=== PATIENT | male | born 1990 | race Caucasian/White ===

== ENCOUNTER → 2017-09-27 14:45 | Outpatient (CLI) | payer MEDICAID, SELFPAY ==
--- NOTE | 2017-09-27 14:49 | RAD_ITS ---
STUDY: X-RAY - ABDOMEN/PELVIS REASON FOR EXAM: Male, 27 years old. Nausea, vomiting and diarrhea. TECHNIQUE: AP supine and upright views of the abdomen and pelvis. COMPARISON: None. FINDINGS: Normal visualized lung bases. There is an abundance of fecal material throughout the colon. There is no demonstrated free abdominal air. The visualized liver, spleen and kidneys are grossly normal in size and morphology. Normal soft tissue structures. Normal visualized osseous structures. RAD/Abd Inc Decub and/or Erect IMPRESSION: Large amount of fecal material is seen in the colon. Electronically Signed: Ag Wen MD at 15:28 EST Tel [phone], Service support ,
== END ==
PROVIDERS: Family Provider Family Medicine; PCP Family Medicine; Visit Provider Family Medicine Geriatric Medicine
DX: R11.2 Nausea with vomiting, unspecified (principal)
CPT/HCPCS: 36415; 74019; 80048; 85025; 87633

== ENCOUNTER → 2017-09-27 15:23 | Outpatient (CLI) | payer MEDICAID, SELFPAY ==
[2017-09-27 17:04] LABS: Anion Gap 5 (5-15); BUN 10 mg/dL (7-18); BUN/Creat Ratio 13.6 RATIO (10-20); Calcium,Total 9.1 mg/dL (8.5-10.1); Chloride 102 mmol/L (98-107); Creatinine, Serum 0.74 mg/dL (0.70-1.30); EST Glomerular Filtration Rate 138 mL/min (>60); Est Glom Filt Rate - Afr Amer 167 mL/min (>60); Glucose 77 mg/dL (74-106); Potassium 4.2 mmol/L (3.5-5.1); Sodium Level 138 mmol/L (136-145)
[2017-09-27 17:07] LABS: Absolute Lymphocyte Count 2.44 X10^3/ul (0.83-4.51); Absolute Neutrophil Count 3.4 X10^3/uL (2.0-7.7); Basophil# 0.02 X10^3/uL; Basophil% 0.3 % (0-1); Eosinophil# 0.43 X10^3/uL; Eosinophils% 6.3 % (0-5); Hematocrit 44.6 % (40-54); Hemoglobin 15.4 g/dl (13.0-16.5); Lymphocyte # 2.44 X10^3/ul (4.0); Lymphocyte % 35.9 % (19-41); Mean Corp Hgb Conc 34.5 g/gl (32-36); Mean Corpuscular Hgb 30.3 pg (27.0-32.0); Mean Corpuscular Volume 87.6 fL (80-94); Mean Platelet Vol. 10.7 fl (6.2-12.0); Monocyte# 0.49 X10^3/uL; Monocyte% 7.2 % (0-10); Neutrophil # 3.41 X10^3/uL (2.7-7.7); Neutrophil % 50.2 % (47-70); Platelet Count 275 K/mm3 (150-450); RBC Distribution Width CV 12.1 % (11.6-14.6); RBC Distribution Width SD 38.1 fl (35.1-43.9); Red Blood Count 5.09 M/mm3 (4.6-6.2); White Blood Count 6.8 K/mm3 (4.4-11.0)
[2017-09-27 17:11] LABS: POSITIVE COUNT NO; POSITIVE DIFFERENTIAL NO; POSITIVE MORPHOLOGY NO
== END ==
PROVIDERS: Visit Provider Family Medicine Geriatric Medicine
DX: R11.2 Nausea with vomiting, unspecified (principal)
CPT/HCPCS: 36415; 80048; 85025

== ENCOUNTER → 2018-05-09 09:16 | Outpatient (CLI) | payer MEDICAID, SELFPAY ==
[2018-05-09 12:25] LABS: Absolute Lymphocyte Count 2.07 X10^3/ul (0.83-4.51); Absolute Neutrophil Count 3.8 X10^3/uL (2.0-7.7); Basophil# 0.01 X10^3/uL; Basophil% 0.2 % (0-1); Eosinophils% 3.1 % (0-5); Hemoglobin 15.4 g/dl (13.0-16.5); Lymphocyte # 2.07 X10^3/ul (4.0); Mean Corp Hgb Conc 34.2 g/gl (32-36); Mean Corpuscular Volume 87.5 fL (80-94); Mean Platelet Vol. 10.9 fl (6.2-12.0); Monocyte% 6.2 % (0-10); Neutrophil # 3.78 X10^3/uL (2.7-7.7); Neutrophil % 58.3 % (47-70); Platelet Count 240 K/mm3 (150-450); RBC Distribution Width CV 11.9 % (11.6-14.6); Red Blood Count 5.14 M/mm3 (4.6-6.2); White Blood Count 6.5 K/mm3 (4.4-11.0)
[2018-05-09 12:28] LABS: POSITIVE COUNT NO; POSITIVE DIFFERENTIAL NO; POSITIVE MORPHOLOGY NO
[2018-05-09 12:40] LABS: AST(SGOT) 24 U/L (15-37); Alanine Aminotransfer ALT/SGPT 29 U/L (16-61); Albumin, Serum 4.1 g/dL (3.2-5.0); Alkaline Phosphatase 93 U/L (45-117); Anion Gap 5 (5-15); BUN 14 mg/dL (7-18); Chloride 106 mmol/L (98-107); Creatinine, Serum 0.87 mg/dL (0.70-1.30); EST Glomerular Filtration Rate 112 mL/min (>60); Est Glom Filt Rate - Afr Amer 136 mL/min (>60); Glucose 88 mg/dL (74-106); Potassium 4.2 mmol/L (3.5-5.1); Protein, Total 8.1 g/dL (6.4-8.2); Sodium Level 140 mmol/L (136-145); Thyroid Stim Hormone (TSH) 0.68 uIU/mL (0.358-3.74)
== END ==
PROVIDERS: Family Provider Family Medicine; PCP Family Medicine; Visit Provider Family Medicine Geriatric Medicine
DX: R53.83 Other fatigue (principal)
CPT/HCPCS: 36415; 80053; 84443; 85025

== ENCOUNTER → 2018-08-16 08:28 | Outpatient (CLI) | payer MEDICAID, SELFPAY ==
[2018-08-16 09:54] LABS: Absolute Lymphocyte Count 2.06 X10^3/ul (0.83-4.51); Absolute Neutrophil Count 4.7 X10^3/uL (2.0-7.7); Basophil# 0.02 X10^3/uL; Basophil% 0.3 % (0-1); Eosinophil# 0.21 X10^3/uL; Eosinophils% 2.8 % (0-5); Hematocrit 46.9 % (40-54); Hemoglobin 15.5 g/dl (13.0-16.5); Lymphocyte # 2.06 X10^3/ul (4.0); Lymphocyte % 27.7 % (19-41); Mean Corpuscular Hgb 29.6 pg (27.0-32.0); Mean Corpuscular Volume 89.5 fL (80-94); Mean Platelet Vol. 10.5 fl (6.2-12.0); Monocyte# 0.44 X10^3/uL; Monocyte% 5.9 % (0-10); Neutrophil % 63.2 % (47-70); Platelet Count 240 K/mm3 (150-450); RBC Distribution Width CV 12.4 % (11.6-14.6); RBC Distribution Width SD 40.1 fl (35.1-43.9); Red Blood Count 5.24 M/mm3 (4.6-6.2); White Blood Count 7.4 K/mm3 (4.4-11.0)
[2018-08-16 09:56] LABS: POSITIVE COUNT NO; POSITIVE DIFFERENTIAL NO; POSITIVE MORPHOLOGY NO
[2018-08-16 10:20] LABS: ALB/GLOB Ratio 1.2 RATIO (0.9-2.4); AST(SGOT) 22 U/L (15-37); Alanine Aminotransfer ALT/SGPT 27 U/L (16-61); Albumin, Serum 4.3 g/dL (3.2-5.0); Alkaline Phosphatase 92 U/L (45-117); Anion Gap 8 (5-15); BUN 15 mg/dL (7-18); BUN/Creat Ratio 18.1 RATIO (10-20); Calcium,Total 8.7 mg/dL (8.5-10.1); Chloride 105 mmol/L (98-107); Creatinine, Serum 0.83 mg/dL (0.70-1.30); EST Glomerular Filtration Rate 119 mL/min (>60); Est Glom Filt Rate - Afr Amer 144 mL/min (>60); Globulin 3.7 g/dL (2.2-4.2); Glucose 107 mg/dL (74-106); Potassium 3.7 mmol/L (3.5-5.1); Sodium Level 140 mmol/L (136-145)
[2018-08-16 11:02] LABS: Carbamazepine (Tegretol) 9.8 ug/mL (4.0-12.0)
== END ==
PROVIDERS: Family Provider Family Medicine Geriatric Medicine; PCP Family Medicine Geriatric Medicine
DX: G40.919 Epilepsy, unspecified, intractable, without status epilepticus (principal)
CPT/HCPCS: 36415; 80053; 80156; 80177; 85025

== ENCOUNTER 2018-10-18 09:12 | Emergency (ER) | payer MEDICAID, SELFPAY ==
[2018-10-18 09:14] VITALS: BP 120/69; PULSE 87; RESP 18; TEMP 36.2; O2SAT 97; BMI 28.8
--- NOTE | 2018-10-18 09:31 | CT_ITS ---
STUDY: CT BRAIN WITHOUT CONTRAST REASON FOR EXAM: Male, 28 years old. History of seizures. RADIATION DOSAGE (If Supplied By Facility): CTDIvol = ( 44.99 ) mGy, DLP = ( 796.11 ) mGycm TECHNIQUE: Transaxial CT imaging of the brain was performed without administration of intravenous contrast material. Individualized dose optimization techniques were used for this CT. COMPARISON: Comparison is made with prior study dated February 22, 2016. FINDINGS: Normal soft tissue structures. Normal calvarium. Normal size ventricles and extra-axial spaces for the patient's age. Normal white matter tracts of the cerebral hemispheres. Normal basal ganglia and thalami. Normal brainstem. Normal cerebellum. There is no intracranial hemorrhage. There are no findings of an acute ischemic infarction. Normal visualized paranasal sinuses. CT/Brain/Head without Contrast IMPRESSION: Normal unenhanced CT scan of the brain. Electronically Signed: Ag Wen, at 9:59 EDT , Service support ,
--- NOTE | 2018-10-18 09:31 | ED.VISSUMM ---
- ER Visit Summary Date of Service: 10/18/18 Chief Complaint: Head trauma History of Present Illness: The patient is a 28 M with history of epilepsy and MRDD who presents for evaluation of head trauma after a breakthrough seizure. Patient has been having an increased number of breakthrough seizures in the last day, with 3 generalized seizures this morning. During the last seizure, he fell in the bathroom and hit his head. Patient had a brief postictal period and per the caregiver is now at his baseline. He does have trauma to the right side of the head which she requested evaluating. She also states when he has increased breakthrough seizures, he commonly has an ear infection, and she is requesting evaluation for this. Patient has not had any recent cough, vomiting, diarrhea, shortness of breath, or any other noted symptoms concerning for illness. Patient has been taking all his medications as prescribed. Physical Examination: Vital signs: afebrile, hemodynamically stable, no hypoxia on room air General: well nourished, well developed, in no distress, sitting in bed Skin: warm, dry, no rash, no pallor HEENT: normocephalic, abrasions to the right forehead and the right temporal scalp with small amount of hemorrhage but no laceration; PERRL, EOMI, moist mucous membranes no maxillofacial trauma noted, no posterior oropharyngeal swelling erythema or exudate neck is supple, no lymphadenopathy, TMs are clear and pearly bilaterally with no bulging, dullness, erythema or loss of landmarks Cardiovascular: regular rate and rhythm without murmurs, no peripheral edema, 2+ pulses all distal extremities Respiratory: No increased work of breathing, lungs are clear to auscultation bilaterally, no rales, rhonchi or wheezing Abdominal: Abdomen is soft, nontender with normoactive bowel sounds, no guarding or rebound, no masses MSK: Moves all extremities, no deformities, normal strength Neuro: Awake and at his baseline per caregiver. Patient will groan and moan but is nonverbal otherwise. Test Results: [ Abnormal Lab Results 10/18/18 09:55 POC Glucose 74 Clinical Impression(s) from Imaging Studies Brain CT 10/18/18 09:31 IMPRESSION: Normal unenhanced CT scan of the brain. Electronically Signed: Ag Wen, at 9:59 EDT , Service support , Emergency Department Course and Treatment: Per the caregiver, patient's tetanus is up-to-date. Patient has been having increased breakthrough seizures, with 3 this morning without any noted sign of infection on physical exam. Patient's abrasions to the scalp do not require any suturing. However given the location of the injury and patient's inability to answer any questions for evaluation of mental status, head CT performed. Head CT showed no intracranial hemorrhage. Blood sugar was checked and was within normal range. Patient remained at his baseline mental status per the caregiver and had no further seizure activity in the emergency department. I did offer to perform lab work to look for any underlying electrolyte abnormalities or other derangements that might be making patient more predisposed to breakthrough seizures. The caregiver declined. Patient was discharged back with wound care instructions to his halfway. Treatment Plan: [] Disposition: [] Impression: Scalp abrasions, breakthrough seizures, history of epilepsy This note was generated with [employer] dictation software. It may contain incorrect words, spelling, and punctuation that were not noted in review of the chart prior to signing ED Disposition - Plan for ED Patient: Disposition: Home or Assisted Living Instructions: ED Seizure Recurrent, ED Prevention Fall Referrals: Hermes Isaac Chi, MD [Primary Care Provider] - 1-2 Days if not improving Additional Instructions: Please continue to take all of your seizure medications as prescribed. Apply antibacterial ointment to the abrasions on your scalp twice daily until healed. If you have any worsening of your condition or any new concerning symptoms, please return immediately to the emergency department for another evaluation.
--- NOTE | 2018-10-18 09:35 | ED.DCSUM_ITS ---
- ER Visit Summary Date of Service: 10/18/18 Chief Complaint: Head trauma History of Present Illness: The patient is a 28 M with history of epilepsy and MRDD who presents for evaluation of head trauma after a breakthrough seizure. Patient has been having an increased number of breakthrough seizures in the last day, with 3 generalized seizures this morning. During the last seizure, he fell in the bathroom and hit his head. Patient had a brief postictal period and per the caregiver is now at his baseline. He does have trauma to the right side of the head which she requested evaluating. She also states when he has increased breakthrough seizures, he commonly has an ear infection, and she is requesting evaluation for this. Patient has not had any recent cough, vomiting, diarrhea, shortness of breath, or any other noted symptoms concerning for illness. Patient has been taking all his medications as prescribed. Physical Examination: Vital signs: afebrile, hemodynamically stable, no hypoxia on room air General: well nourished, well developed, in no distress, sitting in bed Skin: warm, dry, no rash, no pallor HEENT: normocephalic, abrasions to the right forehead and the right temporal scalp with small amount of hemorrhage but no laceration; PERRL, EOMI, moist mucous membranes no maxillofacial trauma noted, no posterior oropharyngeal swelling erythema or exudate neck is supple, no lymphadenopathy, TMs are clear and pearly bilaterally with no bulging, dullness, erythema or loss of landmarks Cardiovascular: regular rate and rhythm without murmurs, no peripheral edema, 2+ pulses all distal extremities Respiratory: No increased work of breathing, lungs are clear to auscultation bilaterally, no rales, rhonchi or wheezing Abdominal: Abdomen is soft, nontender with normoactive bowel sounds, no guarding or rebound, no masses MSK: Moves all extremities, no deformities, normal strength Neuro: Awake and at his baseline per caregiver. Patient will groan and moan but is nonverbal otherwise. Test Results: [ Abnormal Lab Results 10/18/18 09:55 POC Glucose 74 Clinical Impression(s) from Imaging Studies Brain CT 10/18/18 09:31 IMPRESSION: Normal unenhanced CT scan of the brain. Electronically Signed: Ag Wen, at 9:59 EDT , Service support , Emergency Department Course and Treatment: Per the caregiver, patient's tetanus is up-to-date. Patient has been having increased breakthrough seizures, with 3 this morning without any noted sign of infection on physical exam. Patient's abrasions to the scalp do not require any suturing. However given the location of the injury and patient's inability to answer any questions for evaluation of mental status, head CT performed. Head CT showed no intracranial hemorrhage. Blood sugar was checked and was within normal range. Patient remained at his baseline mental status per the caregiver and had no further seizure activity in the emergency department. I did offer to perform lab work to look for any underlying electrolyte abnormalities or other derangements that might be making patient more predisposed to breakthrough seizures. The caregiver declined. Patient was discharged back with wound care instructions to his snf. Treatment Plan: [] Disposition: [] Impression: Scalp abrasions, breakthrough seizures, history of epilepsy This note was generated with [employer] dictation software. It may contain incorrect words, spelling, and punctuation that were not noted in review of the chart prior to signing ED Disposition - Plan for ED Patient: Disposition: Home or Assisted Living Instructions: ED Seizure Recurrent, ED Prevention Fall Referrals: Hermes Isaac Chi, MD [Primary Care Provider] - 1-2 Days if not improving Additional Instructions: Please continue to take all of your seizure medications as prescribed. Apply antibacterial ointment to the abrasions on your scalp twice daily until healed. If you have any worsening of your condition or any new concerning symptoms, please return immediately to the emergency department for another evaluation.
[2018-10-18 10:01] LABS: Bedside Glucose 74 mg/dL (70-110)
[2018-10-18 10:29] VITALS: PULSE 83; RESP 14
== END 2018-10-18 10:30 | disposition home or self-care (01) ==
PROVIDERS: Emergency Provider Emergency Medicine; Family Provider Family Medicine Geriatric Medicine; PCP Family Medicine Geriatric Medicine
DX: S00.01XA Abrasion of scalp, initial encounter (principal); G40.909 Epilepsy, unspecified, not intractable, without status epilepticus; W18.30XA Fall on same level, unspecified, initial encounter; Y93.89 Activity, other specified; Y92.002 Bathroom of unspecified non-institutional (private) residence as the place of occurrence of the external cause; Y99.8 Other external cause status
CPT/HCPCS: 70450; 82962; 99282

== ENCOUNTER 2019-04-13 11:18 | Emergency (ER) | payer MEDICAID, SELFPAY ==
[2019-04-13 11:19] VITALS: BP 128/72; PULSE 86; RESP 17; TEMP 36.8; O2SAT 98; BMI 27.6
[2019-04-13] MEDS: Diphth,Pertuss(Acell),Tet Vac 0.5 ML Vial IM (13:40)
--- NOTE | 2019-04-13 13:48 | ED.DCSUM_ITS ---
History of Present Illness Chief Complaint: Laceration Informant: - Onset: Today Context: Sudden Onset Narrative: She is a 28-year-old male with history of poorly controlled seizure disorder with weekly seizures presenting for laceration to his chin. Patient's caregiver states that he had a seizure in the bathroom today fell and hit his chin. The seizure was typical of his seizures. Patient is on multiple seizure medications been compliant with all of the per the caregiver. She is unsure when his last tetanus was. They came in for evaluation of his laceration. Patient currently has no complaints. Past Medical History - Allergies and Home Meds Allergies/Adverse Reactions: Allergies amphetamine aspartate [From Adderall] Allergy (Verified 04/13/19 11:19) Unknown amphetamine sulfate [From Adderall] Allergy (Verified 04/13/19 11:19) Unknown buspirone HCl [From BuSpar] Allergy (Verified 04/13/19 11:19) Unknown dextroamphetamine saccharate [From Adderall] Allergy (Verified 04/13/19 11:19) Unknown dextroamphetamine sulfate [From Adderall] Allergy (Verified 04/13/19 11:19) Unknown divalproex sodium [From Depakote] Adverse Reaction (Verified 04/13/19 11:19) Other Primary Care Physician: Hermes Isaac Chi, MD [Primary Care Provider] - Past Medical History: - - MRDD, epilepsy Smoking Status: Never smoker Review of Systems All systems negative except as indicated Skin: Reports: Wounds - Chin Neurological: Reports: - - Seizure activity Physical Exam Vital Signs/Narrative: Vital Signs Temp Pulse Resp BP Pulse Ox 04/13/19 11:19 98.3 F 86 17 128/72 H 98 Inital Vital Signs reviewed: Yes General: Well nourished, Well developed, No Acute Distress Head: Normocephalic, Atraumatic Eyes: Perrl, EOMI ENT: Moist mucous membranes, No rhinorrhea, - - No signs of basilar skull fracture, no malocclusion, no septal hematoma Neck: Supple, Nontender, - - Full Range of motion Cardiovascular: Regular rate, Regular rhythm, No murmurs Respiratory: No distress, CTA bilaterally, Chest nontender Abdomen: Soft, Nontender, Nondistended, Normal bowel sounds Back: Nontender, Normal Inspection Extremities: Nontender, No edema Skin: Normal color, No rash, - - 2 Centimeter full-thickness linear laceration underneath the chin, slightly gaping, no active bleeding Neurological: Alert, Cranial nerves II-XII grossly intact, Normal Strength, Normal Sensation Psychological: Normal affect, Normal Mood Diagnostic/Tx/Re-eval - Medical Decision Making Evaluated for laceration to his chin after a breakthrough seizure. Patient has approximate 1 seizure week and this is his baseline. He is returned to his baseline. He does not require further seizure evaluation at this time. Laceration was repaired to his chin. See procedure note. Tetanus is updated. Patient's caregivers counseled on signs and symptoms requiring return to the emergency room. They verbalized agreement and understand this plan. He will need to return in 5 to 7 days for wound reevaluation and suture removal. Procedures - Lacerations No standard instances Length: 0.79 in Depth: Skin Shape: Linear Prep: Sterile Conditions Laceration repair: Skin sutures - Patient tolerated procedure well, no immediate complications. Irrigated (ml): 100 Number of Sutures/[place]: 4 Suture Information: Ethilon, 5-0 ED Disposition - Plan for ED Patient: Disposition: Home or Assisted Living Diagnosis: Laceration, Breakthrough seizure, Need for tetanus booster Instructions: LACERATION, Face (Suture or Tape) Referrals: Hermes Isaac Chi, MD [Primary Care Provider] - Additional Instructions: Stitches need to be removed in 5 to 7 days. 4 sutures were placed.
[2019-04-13 14:04] VITALS: PULSE 84; RESP 16; O2SAT 97
== END 2019-04-13 14:06 | disposition home or self-care (01) ==
PROVIDERS: Emergency Provider Emergency Medicine; Family Provider Family Medicine Geriatric Medicine; PCP Family Medicine Geriatric Medicine
DX: S01.81XA Laceration without foreign body of other part of head, initial encounter (principal); G40.909 Epilepsy, unspecified, not intractable, without status epilepticus; F79 Unspecified intellectual disabilities; Z79.899 Other long term (current) drug therapy; Z23 Encounter for immunization; W26.8XXA Contact with other sharp object(s), not elsewhere classified, initial encounter; Y93.89 Activity, other specified; Y92.002 Bathroom of unspecified non-institutional (private) residence as the place of occurrence of the external cause; Y99.8 Other external cause status
CPT/HCPCS: 12011; 90471; 90715; 99282

== ENCOUNTER 2019-04-25 21:06 | Emergency (ER) | payer MEDICAID, SELFPAY ==
[2019-04-25 21:07] VITALS: BP 113/79; PULSE 95; RESP 15; TEMP 36.7; O2SAT 96; BMI 28.1
--- NOTE | 2019-04-25 22:19 | EKG12_ITS ---
Test Reason : NEURO Blood Pressure : / mmHG Vent. Rate : 075 BPM Atrial Rate : 075 BPM P-R Int : 162 ms QRS Dur : 092 ms QT Int : 362 ms P-R-T Axes : 052 054 033 degrees QTc Int : 404 ms Normal sinus rhythm Normal ECG Confirmed by AC BROWN, JENI ([id number]), book or script editor WINNIE SANDHU ([id number]) on 04/28/2019 8:54:49 AM Referred By: MR Confirmed By:JENI SHEN MD
[2019-04-25 22:47] VITALS: PULSE 70; RESP 17
[2019-04-25] MEDS: 0.9% Normal Saline 1,000 ML 1000 ML IV (22:47)
[2019-04-25 22:55] LABS: Absolute Lymphocyte Count 1.83 X10^3/uL (0.83-4.51); Absolute Neutrophil Count 7.3 X10^3/uL (2.0-7.7); Basophil# 0.03 X10^3/uL; Basophil% 0.3 % (0-1); Eosinophil# 0.11 X10^3/uL; Eosinophils% 1.1 % (0-5); Hematocrit 45.5 % (40-54); Hemoglobin 15.1 g/dL (13.0-16.5); Lymphocyte # 1.83 X10^3/ul (4.0); Lymphocyte % 18.6 % (19-41); Mean Corp Hgb Conc 33.2 g/dL (32-36); Mean Corpuscular Hgb 29.6 pg (27.0-32.0); Mean Corpuscular Volume 89.2 fL (80-94); Mean Platelet Vol. 9.7 fl (6.2-12.0); Monocyte# 0.53 X10^3/uL; Monocyte% 5.4 % (0-10); NRBC Flagged by Analyzer 0 % (0-5); Neutrophil # 7.28 X10^3/uL (2.7-7.7); Neutrophil % 74.2 % (47-70); Platelet Count 301 K/mm3 (150-450); RBC Distribution Width CV 11.5 % (11.6-14.6); RBC Distribution Width SD 36.9 fl (35.1-43.9); White Blood Count 9.8 K/mm3 (4.4-11.0)
[2019-04-25 23:09] LABS: AST(SGOT) 24 U/L (15-37); Alanine Aminotransfer ALT/SGPT 23 U/L (16-61); Albumin, Serum 4.3 g/dL (3.2-5.0); Alkaline Phosphatase 92 U/L (45-117); Anion Gap 4 (5-15); BUN 9 mg/dL (7-18); BUN/Creat Ratio 10.4 RATIO (10-20); Calcium,Total 9.3 mg/dL (8.5-10.1); Chloride 103 mmol/L (98-107); Creatinine, Serum 0.86 mg/dL (0.70-1.30); EST Glomerular Filtration Rate 113 mL/min (>60); Est Glom Filt Rate - Afr Amer 137 mL/min (>60); Estimated Creatinine Clearance 125.93 ml/min; Globulin 4.2 g/dL (2.2-4.2); Glucose 103 mg/dL (74-106); Potassium 4.2 mmol/L (3.5-5.1); Protein, Total 8.5 g/dL (6.4-8.2); Sodium Level 138 mmol/L (136-145)
[2019-04-25 23:15] LABS: Lactic Acid 1.6 mmol/L (0.4-2.0)
[2019-04-25 23:24] LABS: Carbamazepine (Tegretol) 10.9 ug/mL (4.0-12.0)
--- NOTE | 2019-04-26 00:12 | ED.DCSUM_ITS ---
History of Present Illness Chief Complaint: Seizure Narrative: Patient presenting for evaluation secondary to seizures. Patient has an underlying seizure history with significant difficulty with controlling this, on 4 different antiepileptic medications. Patient apparently has had up to 4 episodes of seizures today. One being about a minute and a half, another one being about 2 minutes. He has also had 2 other [place] seizures, and some other small clusters. No missed medication doses, no recent illnesses other than the patient is being treated for a left-sided otitis media and has been on amoxicillin for about a week. Review of systems through caregiver is otherwise negative. Past Medical History - Allergies and Home Meds Allergies/Adverse Reactions: Allergies amphetamine aspartate [From Adderall] Allergy (Verified 04/25/19 21:25) Unknown amphetamine sulfate [From Adderall] Allergy (Verified 04/25/19 21:25) Unknown buspirone HCl [From BuSpar] Allergy (Verified 04/25/19 21:25) Unknown dextroamphetamine saccharate [From Adderall] Allergy (Verified 04/25/19 21:25) Unknown dextroamphetamine sulfate [From Adderall] Allergy (Verified 04/25/19 21:25) Unknown aspartame Adverse Reaction (Verified 04/25/19 21:56) Unknown divalproex sodium [From Depakote] Adverse Reaction (Verified 04/25/19 21:25) Other magnesium Adverse Reaction (Verified 04/25/19 21:56) Unknown potassium Adverse Reaction (Verified 04/25/19 21:56) Unknown Primary Care Physician: Hermes Isaac Chi, MD [Primary Care Provider] - Past Medical History: - - Seizures Smoking Status: Never smoker Review of Systems All systems negative except as indicated ENT: Reports: Left ear pain Neurological: Reports: - - Seizures Physical Exam Vital Signs/Narrative: Vital Signs Temp Pulse Resp BP Pulse Ox 04/25/19 22:47 70 17 04/25/19 21:07 98.0 F 95 15 113/79 96 General: Well nourished, Well developed, No Acute Distress Head: Normocephalic, Atraumatic Eyes: Perrl, EOMI ENT: Moist mucous membranes, No rhinorrhea, - - Left TM mildly erythematous with no evidence of opacity Neck: Supple, Nontender Cardiovascular: Regular rate, Regular rhythm, No murmurs Respiratory: No distress, CTA bilaterally, Chest nontender Abdomen: Soft, Nontender, Nondistended, Normal bowel sounds Extremities: Nontender, No edema Skin: Normal color, No rash Neurological: Alert Diagnostic/Tx/Re-eval - EKG Initial EKG Interpretation: - - Sinus rhythm at [address] segments normal T waves n ormal CT and QTc intervals - Medical Decision Making Patient presented secondary to seizures. CBC CMP and lactic acid and Tegretol levels were obtained which were all found to be unremarkable. Keppra level was obtained and was sent but is still pending. Patient did not have any seizure- like activity in the 3 hours he was in the emergency department. I discussed patient's case with the covering neurologist for the patient's neurologist at the [facility] who does feel the patient's appropriate for discharge. Patient will be increased to 2500 mg of Keppra twice a day and will call the office on Sunday for further instructions and titrations of medication. ED Disposition - Plan for ED Patient: Disposition: Home or Assisted Living Diagnosis: Breakthrough seizure Instructions: SEIZURE, Recurrent [Adult] Additional Instructions: Increase your Keppra to 2500 mg twice a day and call the neurology office on Sunday
[2019-04-26 00:23] VITALS: BP 108/59; PULSE 66; RESP 20
[2019-04-30 12:46] LABS: KEPPRA (LEVETIRACETAM) 46.2 ug/mL (10.0-40.0)
== END 2019-04-26 00:23 | disposition home or self-care (01) ==
PROVIDERS: Emergency Provider Emergency Medicine; Family Provider Family Medicine Geriatric Medicine; PCP Family Medicine Geriatric Medicine
DX: R56.9 Unspecified convulsions (principal); H66.92 Otitis media, unspecified, left ear; Z79.82 Long term (current) use of aspirin; Z79.899 Other long term (current) drug therapy
CPT/HCPCS: 36415; 80053; 80156; 80177; 83605; 85025; 93005; 96360; 96361; 99285; J7030

== ENCOUNTER → 2019-06-25 15:51 | Outpatient (CLI) | payer MEDICAID, SELFPAY ==
[2019-06-25 17:15] LABS: Color, Urine Yellow (Yellow); Glucose, Dipstick Normal (Normal); Ketone-Dipstick Negative (Negative); Leukocyte Esterase-Dipstick Negative /ul (Negative); Nitrite-Dipstick Negative (Negative); Occult Blood-Urine Negative /ul (Negative); Protein-Dipstick Negative (Negative); Urine Bilirubin Dipstick Negative (Negative); Urine Clarity Clear (Clear); Urine Urobilinogen Normal (Normal)
== END ==
PROVIDERS: Family Provider Family Medicine Geriatric Medicine; PCP Family Medicine Geriatric Medicine; Referring Provider Psychiatry & Neurology Child & Adolescent Psychiatry; Visit Provider Psychiatry & Neurology Child & Adolescent Psychiatry
DX: R39.81 Functional urinary incontinence (principal)
CPT/HCPCS: 81002; 87086

== ENCOUNTER → 2020-05-13 | Outpatient (CLI) | payer MEDICAID, SELFPAY ==
[2020-05-13 12:34] LABS: Absolute Neutrophil Count 3.9 X10^3/uL (2.0-7.7); Basophil# 0.04 X10^3/uL; Basophil% 0.6 % (0-1); Eosinophil# 0.27 X10^3/uL; Eosinophils% 3.9 % (0-5); Hematocrit 47.4 % (40-54); Hemoglobin 15.7 g/dL (13.0-16.5); Lymphocyte % 32.1 % (19-41); Mean Corp Hgb Conc 33.1 g/dL (32-36); Mean Corpuscular Hgb 29.6 pg (27.0-32.0); Mean Corpuscular Volume 89.4 fL (80-94); Mean Platelet Vol. 10.5 fl (6.2-12.0); Monocyte# 0.42 X10^3/uL; Monocyte% 6.1 % (0-10); NRBC Flagged by Analyzer 0 % (0-5); Neutrophil # 3.92 X10^3/uL (2.7-7.7); Neutrophil % 57.2 % (47-70); Platelet Count 292 K/mm3 (150-450); RBC Distribution Width CV 11.9 % (11.6-14.6); RBC Distribution Width SD 39.3 fl (35.1-43.9); White Blood Count 6.9 K/mm3 (4.4-11.0)
[2020-05-13 12:55] LABS: ALB/GLOB Ratio 1.1 RATIO (0.9-2.4); AST(SGOT) 24 U/L (15-37); Alanine Aminotransfer ALT/SGPT 33 U/L (16-61); Albumin, Serum 4.3 g/dL (3.2-5.0); Alkaline Phosphatase 76 U/L (45-117); Anion Gap 10 (5-15); BUN 13 mg/dL (7-18); BUN/Creat Ratio 12.9 RATIO (10-20); Calcium,Total 9.1 mg/dL (8.5-10.1); Chloride 107 mmol/L (98-107); Creatinine, Serum 1.01 mg/dL (0.70-1.30); EST Glomerular Filtration Rate 94 mL/min (>60); Est Glom Filt Rate - Afr Amer 113 mL/min (>60); Globulin 3.9 g/dL (2.2-4.2); Glucose 88 mg/dL (74-106); Potassium 3.9 mmol/L (3.5-5.1); Protein, Total 8.2 g/dL (6.4-8.2); Sodium Level 139 mmol/L (136-145); Thyroid Stim Hormone (TSH) 1.08 uIU/mL (0.358-3.74)
== END | disposition home or self-care (01) ==
LOC: POLAB3 10:29
PROVIDERS: PCP Family Medicine Geriatric Medicine; Visit Provider Family Medicine Geriatric Medicine
DX: R53.83 Other fatigue (principal)
CPT/HCPCS: 36415; 80053; 84443; 85025

== ENCOUNTER → 2020-11-09 13:31 | Outpatient (CLI) | payer MEDICAID, SELFPAY ==
[2020-11-09 15:04] LABS: Absolute Lymphocyte Count 2.48 X10^3/uL (0.83-4.51); Absolute Neutrophil Count 9.8 X10^3/uL (2.0-7.7); Basophil# 0.04 X10^3/uL; Basophil% 0.3 % (0-1); Eosinophil# 0.17 X10^3/uL; Eosinophils% 1.3 % (0-5); Hemoglobin 16.3 g/dL (13.0-16.5); Lymphocyte # 2.48 X10^3/ul (4.0); Lymphocyte % 18.4 % (19-41); Mean Corp Hgb Conc 33.3 g/dL (32-36); Mean Corpuscular Volume 90.2 fL (80-94); Monocyte% 7.4 % (0-10); NRBC Flagged by Analyzer 0 % (0-5); Neutrophil # 9.76 X10^3/uL (2.7-7.7); Neutrophil % 72.4 % (47-70); Platelet Count 293 K/mm3 (150-450); RBC Distribution Width SD 39.4 fl (35.1-43.9); Red Blood Count 5.43 M/mm3 (4.6-6.2); White Blood Count 13.5 K/mm3 (4.4-11.0)
[2020-11-09 15:18] LABS: Anion Gap 4 (5-15); BUN 11 mg/dL (7-18); BUN/Creat Ratio 14.9 RATIO (10-20); Calcium,Total 9.1 mg/dL (8.5-10.1); Chloride 106 mmol/L (98-107); Creatinine, Serum 0.74 mg/dL (0.70-1.30); EST Glomerular Filtration Rate 134 mL/min (>60); Est Glom Filt Rate - Afr Amer 162 mL/min (>60); Glucose 64 mg/dL (74-106); Potassium 4.1 mmol/L (3.5-5.1); Sodium Level 135 mmol/L (136-145)
== END ==
PROVIDERS: PCP Family Medicine Geriatric Medicine; Visit Provider Family Medicine Geriatric Medicine
DX: G92 Toxic encephalopathy (principal)
CPT/HCPCS: 36415; 80048; 85025

== ENCOUNTER → 2021-05-19 09:29 | Outpatient (CLI) | payer MEDICAID, SELFPAY ==
[2021-05-19 12:13] LABS: Absolute Lymphocyte Count 2.09 X10^3/uL (0.83-4.51); Absolute Neutrophil Count 3.5 X10^3/uL (2.0-7.7); Basophil# 0.03 X10^3/uL; Basophil% 0.5 % (0-1); Eosinophil# 0.19 X10^3/uL; Hematocrit 46.2 % (40-54); Hemoglobin 15.7 g/dL (13.0-16.5); Lymphocyte # 2.09 X10^3/ul (0.83-4.51); Lymphocyte % 33.4 % (19-41); Mean Corpuscular Hgb 29.6 pg (27.0-32.0); Mean Corpuscular Volume 87.2 fL (80-94); Mean Platelet Vol. 10.3 fl (6.2-12.0); Monocyte# 0.46 X10^3/uL; Monocyte% 7.4 % (0-10); NRBC Flagged by Analyzer 0 % (0-5); Neutrophil # 3.46 X10^3/uL (2.7-7.7); Neutrophil % 55.4 % (47-70); Platelet Count 305 K/mm3 (150-450); RBC Distribution Width CV 11.9 % (11.6-14.6); RBC Distribution Width SD 37.8 fl (35.1-43.9); White Blood Count 6.3 K/mm3 (4.4-11.0)
[2021-05-19 12:38] LABS: ALB/GLOB Ratio 1.1 RATIO (0.9-2.4); AST(SGOT) 20 U/L (15-37); Alanine Aminotransfer ALT/SGPT 32 U/L (16-61); Alkaline Phosphatase 81 U/L (45-117); Anion Gap 9 (5-15); BUN 6 mg/dL (7-18); BUN/Creat Ratio 7.8 RATIO (10-20); Calcium,Total 9.1 mg/dL (8.5-10.1); Chloride 100 mmol/L (98-107); Creatinine, Serum 0.77 mg/dL (0.70-1.30); EST Glomerular Filtration Rate 127 mL/min (>60); Est Glom Filt Rate - Afr Amer 154 mL/min (>60); Globulin 3.8 g/dL (2.2-4.2); Glucose 83 mg/dL (74-106); Potassium 4.1 mmol/L (3.5-5.1); Protein, Total 7.8 g/dL (6.4-8.2); Sodium Level 134 mmol/L (136-145); Thyroid Stim Hormone (TSH) 0.94 uIU/mL (0.358-3.74)
== END ==
PROVIDERS: PCP Family Medicine Geriatric Medicine; Visit Provider Family Medicine Geriatric Medicine
DX: R53.83 Other fatigue (principal)
CPT/HCPCS: 36415; 80053; 84443; 85025

== ENCOUNTER 2021-07-25 06:00 | Day surgery (SDC) | payer MEDICAID, SELFPAY ==
[2021-07-25 06:50] VITALS: BP 112/67; PULSE 55; RESP 16; TEMP 36.9; O2SAT 98; BMI 30.1
[2021-07-25] MEDS: Lactated Ringers 1,000 ML 15 ML IV (06:55)
--- NOTE | 2021-07-25 07:31 | PCM.DC.SUM ---
Providers Primary Care Physician: Dr. Hermes Isaac MD Medications at Discharge Home Medications aripiprazole 10 mg PO BID 04/13/19 carbamazepine 300 mg PO BID 04/13/19 levetiracetam 2,000 mg PO BREAKFAST 04/13/19 levetiracetam 2,500 mg PO QHS 04/13/19 linaclotide 72 mcg PO DAILY 04/13/19 loratadine 10 mg PO DAILY 04/25/19 Mayzilam 5 mg NASAL PRN PRN 07/15/21 cannabidiol [Epidiolex] 4.535 PO BID 07/15/21 carbamazepine 600 mg PO QHS 07/15/21 clonazepam 0.5 mg PO TID 07/15/21 fluticasone propionate 2 spray INTRANASAL DAILY 07/15/21 perampanel [Fycompa] 10 mg PO QHS 07/15/21 rufinamide [Banzel] 800 mg PO BID 07/15/21 Weight / BMI Weight Weight: 95.254 kg Body Mass Index (BMI) 30.1 D/C Instructions Discharge Diet: No restrictions Additional Activity Instructions: Dry ear precautions Ear drops....5 drops each ear tonight only. Meaningful Use Info Meaningful Use Diagnoses (Choose all that apply): None applicable Discharge Plan Admission Attending Provider: David Abdul Primary Care Provider: Hermes Isaac Chi Discharge Orders/Prescriptions Prescriptions: No Action carbamazepine 200 MG tablet 300 mg PO BID RF: 0 aripiprazole 10 MG tablet 10 mg PO BID RF: 0 levetiracetam 1,000 MG tablet 2,000 mg PO BREAKFAST RF: 0 levetiracetam 1,000 MG tablet 2,500 mg PO QHS RF: 0 linaclotide 72 MCG capsule 72 mcg PO DAILY RF: 0 loratadine 10 MG tablet 10 mg PO DAILY RF: 0 clonazepam 0.5 mg Tablet 0.5 mg PO TID RF: 0 fluticasone propionate 50 mcg/actuation [place],Suspension 2 spray INTRANASAL DAILY RF: 0 carbamazepine 300 mg Capsule, Er Multiphase 12 Hr 600 mg PO QHS RF: 0 rufinamide [Banzel] 400 mg Tablet 800 mg PO BID RF: 0 Fycompa 10 mg Tablet 10 mg PO QHS RF: 0 Epidiolex 100 mg/mL Solution 4.535 PO BID RF: 0 Mayzilam 5 mg NASAL PRN PRN (Reason: Seizure Activity) RF: 0
[2021-07-25] MEDS: Ciprofloxacin 0.3% 2.5ml Bottle 1 DRP (07:38)
[2021-07-25 07:43] LABS: Carbamazepine (Tegretol) 9.8 ug/mL (4.0-12.0)
--- NOTE | 2021-07-25 07:43 | OP.PCM_ITS ---
Report of Operation Date of Procedure: 07/25/21 Pre-Operative Diagnosis: recurrent acute otitis media Post-Operative Diagnosis: same Surgery/Procedure Performed:: bilateral myringotomy with tubes Surgeon: David Abdul Type of Anesthesia: General Anesthesiologist: Jon Stewart Estimated Blood Loss (mL): none Description of Procedure: The patient was taken to the operating room on 07/25/2021. The patient was placed in the supine position on the operating room table. The patient was given sufficient general anesthesia. The operating micr oscope was used throughout the entire case. A speculum was inserted into the patient's left ear. Cerumen was removed using a curette. An incision was placed in the anterior inferior quadrant of the tympanic membrane. A Mirella Bobin tube was placed without difficulty. Antibiotic drops were instilled into the patient's ear. Next, a speculum was inserted into the patient's right ear. Cerumen was removed using a curette. An incision was placed in the anterior inferior quadrant of the tympanic membrane. A mirella bobin tube was placed without difficulty. Antibiotic drops were instilled into the patient's ear. The patient was then awoken. They were brought to the recovery room in stable condition. Blood loss minimal replacement none sponge needle and instrument counts correct at the end of the procedure.
[2021-07-25 07:53] VITALS: BP 106/72; BP 112/67; PULSE 64; RESP 16; TEMP 35.9; O2SAT 96
[2021-07-25 08:01] VITALS: BP 112/67; BP 112/73; PULSE 60; RESP 16; O2SAT 96
[2021-07-25 08:10] VITALS: BP 112/67; BP 116/64; PULSE 55; RESP 16; TEMP 35.9; O2SAT 96
[2021-07-25 09:32] VITALS: BP 112/67; BP 113/74; PULSE 55; RESP 16; TEMP 36.6; O2SAT 99
== END 2021-07-25 09:33 | disposition home or self-care (01) ==
LOC: SDC 06:07 → AC 06:07
PROVIDERS: PCP Family Medicine Geriatric Medicine; Referring Provider Otolaryngology; Visit Provider Otolaryngology
PROC: (CPT 69436; principal; 2021-07-25 07:25)
DX: H66.006 Acute suppurative otitis media without spontaneous rupture of ear drum, recurrent, bilateral (principal)
CPT/HCPCS: 69436; 80156; J7120; J2405

== ENCOUNTER → 2021-12-14 | Outpatient (CLI) | payer MEDICAID, SELFPAY ==
[2021-12-14 09:27] LABS: Absolute Lymphocyte Count 2.38 X10^3/uL (0.83-4.51); Basophil# 0.03 X10^3/uL; Basophil% 0.4 % (0-1); Eosinophils% 2.8 % (0-5); Hematocrit 44.6 % (40-54); Hemoglobin 15.2 g/dL (13.0-16.5); Lymphocyte # 2.38 X10^3/ul (0.83-4.51); Mean Corp Hgb Conc 34.1 g/dL (32-36); Mean Corpuscular Hgb 29.9 pg (27.0-32.0); Mean Corpuscular Volume 87.8 fL (80-94); Monocyte# 0.62 X10^3/uL; Monocyte% 8.6 % (0-10); NRBC Flagged by Analyzer 0 % (0-5); Neutrophil # 3.96 X10^3/uL (2.7-7.7); Neutrophil % 54.8 % (47-70); Platelet Count 360 K/mm3 (150-450); RBC Distribution Width CV 11.9 % (11.6-14.6); RBC Distribution Width SD 38.4 fl (35.1-43.9); Red Blood Count 5.08 M/mm3 (4.6-6.2); White Blood Count 7.2 K/mm3 (4.4-11.0)
[2021-12-14 09:41] LABS: Vitamin B12 412 pg/mL (211-911)
[2021-12-14 09:42] LABS: ALB/GLOB Ratio 1.2 RATIO (0.9-2.4); AST(SGOT) 24 U/L (15-37); Alanine Aminotransfer ALT/SGPT 25 U/L (16-61); Albumin, Serum 4.2 g/dL (3.2-5.0); Alkaline Phosphatase 97 U/L (45-117); Anion Gap 15 (5-15); BUN 8 mg/dL (7-18); BUN/Creat Ratio 7.8 RATIO (10-20); Calcium,Total 9.1 mg/dL (8.5-10.1); Chloride 99 mmol/L (98-107); Creatinine, Serum 1.03 mg/dL (0.70-1.30); EST Glomerular Filtration Rate 91 mL/min (>60); Est Glom Filt Rate - Afr Amer 110 mL/min (>60); Globulin 3.4 g/dL (2.2-4.2); Glucose 98 mg/dL (74-106); Protein, Total 7.6 g/dL (6.4-8.2); Sodium Level 135 mmol/L (136-145)
== END | disposition home or self-care (01) ==
LOC: LABSPEC 09:16
PROVIDERS: PCP Family Medicine Geriatric Medicine
DX: G40.814 Lennox-Gastaut syndrome, intractable, without status epilepticus (principal)
CPT/HCPCS: 80053; 82607; 85025

== ENCOUNTER → 2021-12-15 | Outpatient (CLI) | payer MEDICAID, SELFPAY ==
[2021-12-15 10:23] LABS: Carbamazepine (Tegretol) 10.2 ug/mL (4.0-12.0)
[2021-12-19 16:31] LABS: KEPPRA (LEVETIRACETAM) 28.3 ug/mL (10.0-40.0)
== END | disposition home or self-care (01) ==
PROVIDERS: PCP Family Medicine Geriatric Medicine
DX: G40.814 Lennox-Gastaut syndrome, intractable, without status epilepticus (principal)
CPT/HCPCS: 80156; 80177

== ENCOUNTER 2022-03-30 13:40 | Emergency (ER) | payer MEDICAID, SELFPAY ==
[2022-03-30 13:42] VITALS: BP 117/84; PULSE 77; RESP 14; TEMP 36.6; O2SAT 97; BMI 31.5
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
[2022-03-30 16:19] LABS: Alcohol, Blood (Medical)-Serum < 3.0 mg/dL
[2022-03-30 16:35] LABS: ALB/GLOB Ratio 1.1 RATIO (0.9-2.4); AST(SGOT) 17 U/L (15-37); Alanine Aminotransfer ALT/SGPT 25 U/L (16-61); Alkaline Phosphatase 98 U/L (45-117); Anion Gap 6 (5-15); BUN 9 mg/dL (7-18); BUN/Creat Ratio 15.2 RATIO (10-20); Calcium,Total 8.5 mg/dL (8.5-10.1); Chloride 99 mmol/L (98-107); Creatinine, Serum 0.59 mg/dL (0.70-1.30); EST Glomerular Filtration Rate 171 mL/min (>60); Est Glom Filt Rate - Afr Amer 207 mL/min (>60); Estimated Creatinine Clearance 190.75 ml/min; Globulin 3.7 g/dL (2.2-4.2); Glucose 91 mg/dL (74-106); Potassium 3.8 mmol/L (3.5-5.1); Protein, Total 7.7 g/dL (6.4-8.2); Sodium Level 133 mmol/L (136-145)
--- NOTE | 2022-03-30 16:36 | NURSING ---
LEFT MESSAGE ON DIY
[2022-03-30 16:43] LABS: Absolute Lymphocyte Count 3.01 X10^3/uL (0.83-4.51); Absolute Neutrophil Count 4.7 X10^3/uL (2.0-7.7); Basophil# 0.04 X10^3/uL; Basophil% 0.5 % (0-1); Eosinophil# 0.25 X10^3/uL; Eosinophils% 2.9 % (0-5); Hematocrit 43.3 % (40-54); Hemoglobin 15.4 g/dL (13.0-16.5); Lymphocyte # 3.01 X10^3/ul (0.83-4.51); Lymphocyte % 34.8 % (19-41); Mean Corp Hgb Conc 35.6 g/dL (32-36); Mean Corpuscular Volume 87.1 fL (80-94); Mean Platelet Vol. 9.1 fl (6.2-12.0); Monocyte# 0.59 X10^3/uL; Monocyte% 6.8 % (0-10); NRBC Flagged by Analyzer 0 % (0-5); Neutrophil # 4.74 X10^3/uL (2.7-7.7); Neutrophil % 54.8 % (47-70); Platelet Count 305 K/mm3 (150-450); RBC Distribution Width CV 11.6 % (11.6-14.6); RBC Distribution Width SD 37.2 fl (35.1-43.9); Red Blood Count 4.97 M/mm3 (4.6-6.2); White Blood Count 8.7 K/mm3 (4.4-11.0)
--- NOTE | 2022-03-30 16:54 | NURSING ---
FAXED CHART TO [phone] AND [phone]
[2022-03-30 16:58] VITALS: RESP 16
[2022-03-30 17:14] LABS: Bacteria 0 SEEN /hpf (None Seen); Mucous, Urine 0 SEEN /hpf (<or=2+); Squamous Epithelial Cells - UA 0 SEEN /hpf (0-5); White Blood Cells 0 SEEN /hpf (0-5)
[2022-03-30 17:21] LABS: Color, Urine Yellow (Yellow); Glucose, Dipstick Normal (Normal); Ketone-Dipstick Negative (Negative); Leukocyte Esterase-Dipstick 25 /ul (Negative); Nitrite-Dipstick Negative (Negative); Occult Blood-Urine Negative /ul (Negative); Protein-Dipstick Negative (Negative); Urine Bilirubin Dipstick Negative (Negative); Urine Clarity Clear (Clear); Urine Urobilinogen Normal (Normal)
[2022-03-30 17:48] LABS: Red Blood Cells-Urine 0 SEEN /hpf (0-5)
[2022-03-30 17:59] LABS: Amphetamine Urine VISTA NEGATIVE (<1000 ng/mL); Barbiturate Urine VISTA NEGATIVE (< 200 ng/mL); Benzodiazepine Urine VISTA POSITIVE (< 200 ng/mL); Cocaine Urine VISTA NEGATIVE (< 300 ng/mL); Ecstacy Urine VISTA NEGATIVE (< 500 ng/mL); Methadone Urine VISTA NEGATIVE (< 300 ng/mL); PCP Urine VISTA NEGATIVE (< 25 ng/mL); THC Urine VISTA POSITIVE (< 50 ng/mL); Vista UDS pH Range 8
[2022-03-30 20:16] VITALS: BP 123/66; PULSE 56; RESP 18; TEMP 36.6; O2SAT 98
--- NOTE | 2022-03-30 21:56 | CM.ED ---
Social Work Note MD Singh asked for update on pt. MELE reviewed chart, referral was faxed to Crisis. MELE placed a call to Rosalind at Crisis, Rosalind states she was not aware pt needed to be seen. MELE informed Rosalind that staff charted that they faxed the referral and called and left a message on Geri's answering service. Rosalind states well you never leave a message for Crisis. MELE informed Rosalind that pt will need to be seen. Rosalind states that she checked and she does have the chart for pt. Rosalind states she will call Sari and let her know. Mayda Wiggins DELICATESSEN SLICER, ICE CREAM FREEZER ASSISTANT
--- NOTE | 2022-03-30 22:46 | ED.RN ---
crisis here to see patient at this time
[2022-03-30 22:59] VITALS: BP 124/76; PULSE 60; RESP 18; O2SAT 99
[2022-03-31] VITALS (10 sets, daily range): BP systolic 110–126; BP diastolic 73–87; PULSE 61–105; RESP 16–18; TEMP 35.8–36.9; O2SAT 93–100
--- NOTE | 2022-03-31 07:15 | NURSING ---
SREEDHAR WITH CRISIS CALLED WITH AN UPDATE. BECAUSE THE PT HAS STRAIT MEDICAID HE CAN NOT GO TO A FREE STANDING PSYCH UNIT HE WILL HAVE TO GO TO A HOSPITAL. THIS WILL MAKE HIS PLACEMENT EVEN HARDER
[2022-03-31] MEDS: CLARIFY ORDER 1 EACH NOTE (07:17)
[2022-03-31] MEDS: Vitamin B Comp W-C Capsule 1 CAP PO (10:17)
[2022-03-31] MEDS: ARIPiprazole 5 MG Tablet 15 MG PO (10:17)
[2022-03-31] MEDS: levETIRAcetam 1,000 MG Tablet 2000 MG PO (10:19)
[2022-03-31] MEDS: Loratadine 10 MG Tablet PO (10:19)
[2022-03-31] MEDS: carBAMazepine 200 MG Tablet 300 MG PO (10:20)
--- NOTE | 2022-03-31 10:36 | CM.ED ---
Addendum entered by Mayda Wiggins 03/31/22 11:02: Correction. Fax number for Shayy Galeana is [phone]. Original Note: Social Work Note SW received call from Shayy Rangeloch at [facility] . Shayy stats that she is trying to get pt into a [facility] and needs pt's lab results, EKG, anything that was done to be faxed to her. Shayy states fax number is [phone]. MELE placed a call to [facility] for update. MELE spoke with Geri. Geri states that pt is getting denied at places. Geri states that in the notes it is stating that pt only answers questions with yes. Geri states she is not sure what to do with pt and if pt is not able to engage in conversation then pt may not be appropriate for inpatient psych. Geri states she is not sure if she is going to be able to get pt anywhere. MELE updated Geri that Shayy Galeana from board of DD called and stated she is trying to get pt into a Developmental Center. Geri states she will reach out to Shayy. MELE faxed clinicals to Shayy Rangeloch. Mayda Wiggins SAP BASIS, PATIENT CONSUMER MARKETER
--- NOTE | 2022-03-31 12:13 | ED.RN ---
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 PT TAKES MANY MEDICATIONS NOT LISTED IN HOSPITAL FORMULARY. STAFF FROM [facility] BROUGHT IN PT MEDICATIONS. PT GIVEN THE ADDITIONAL MEDICATIONS NOT LISTED IN THE FORMULARY. PT MEDICATED BY STAFF WITH MORNING DOES OF CLOBOZAM 10MG PO, LINZESS 72MG PO, EPIDIOLEX 453.5 MG, BANZEL 800 MG PO PER [place] STAFF MEMBER. DR. HUFFMAN AWARE.
--- NOTE | 2022-03-31 12:46 | ED.RN ---
NON FORMULARY MEDICATIONS TAKEN TO PHARMACY AND ADDED TO MAR BY PHARMACIST.
--- NOTE | 2022-03-31 13:27 | ED.RN ---
PER YORDY WITH CRISIS; SHE JUST SPOKE WITH ALVIN AND THEY ARENT REALLY SURE WHAT MORE CRISIS IS SUPPOSE TO DO. I STOPPED THE CONVERSATION AND ASKED HER TO SPEAK WITH REGARDING THIS PT
--- NOTE | 2022-03-31 16:56 | CM.ED ---
Social Work Note SW received call from Shayy Galeana from [facility] stating she called [facility] and asked if they would take pt back for the weekend with additional staffing. Shayy states that [facility] states that they did not have additional staffing. Shayy states that she is looking into other group homes to see if pt can go to somewhere for this weekend for respite stay. Shayy states that she is sending [facility] staff to the ED for 24/7 care for the pt. Shayy states that pt has functional limitation and is intellectually and physically low. Shayy states that she is looking into getting [facility] but state that she is hoping to get pt into a detention for the weekend for respite stay and to get pt stabilize. MELE then receive call from Geri at [facility] stating she spoke with Shayy Galeana stating she is trying to find placement for pt but cannot find placement for pt. Geri states that with pt's level of function being moderate low function, Shayy stated that putting pt in a psychiatric unit would not be in pt's best interest. Geri states that with pt's history of Seroquel and Seizures, pt would need to get EKG, EDG and clearance from Cardiology. Geri states that pt has also had medicine issues and has recently been off Klonopin and that some medications made pt violent. Geri states that pt needs help with all ADLS and cannot take care of self. Geri states that Shayy confirms that pt will just say yes to everything and is not sure how pt would respond in a psych unit. Geri states that she is going to call pt's Guardian to see if pt has any history of being admitted to inpatient psych. Geri states that she is very frustrated. MELE placed a call to Shayy Galeana and requested call back. MELE received call from Shayy Galeana stating she has reached out to multiple providers and she has spoken to a provider that used to work with pt and support pt and asked if they could get staff together to allow pt to move there this weekend. Shayy states that this detention did have two other clients living there but states that they are no longer there. Shayy states that she is calling this an emergency and asking if the other detention can provide staffing for pt this weekend and next week. Shayy states that she is trying to get pt to the [facility] but if pt is able to go to this other detention for the weekend and next week, that would give Shayy more time to get pt to the [facility]. Shayy states that she realizes and this other detention realizes that pt being in the ED is not appropriate. Shayy states that she is not happy with the agency that had pt. Shayy states that as long as pt is remains in the ED, she can mandate staff from [facility] to be with pt while he is in the ED. Shayy states that if pt gets admitted to [facility], she cannot mandate staff to be with pt while he is at [facility]. MELE asked Shayy if there was a time frame or time cut off and that if a certain time passes, should [facility] just assume pt will be here through the weekend. Shayy states that she is hoping to hear something tonight still. MELE informed Shayy that this worker leaves at 8:00pm, told Shayy that she can call this worker until then but if after, she will need to call ED Main Desk and SW provided ED Main Desk number. Shayy states understanding. SW to continue to follow and assist. Shayy Galeana from [facility] of DD working on Skilled Nursing placement for pt. Mayda Wiggins NATIONAL PARK RANGER, PROCTOLOGIST
--- NOTE | 2022-03-31 17:29 | CM.ED ---
Addendum entered by Mayda Wiggins 03/31/22 17:55: Per conversation with Shayy it sounded like pt would be going to the [facility]. MELE placed a call to Crisis and requested call back. MELE received call from Mayda with Crisis. MELE updated Mayda that pt will be discharged to a different skilled nursing tonight with different staffing and pt will be transported around 8:00pm. Mayda states understanding, asked for name of skilled nursing. MELE informed Mayda that this worker is not 100% on the name, states maybe it is called the [facility] but is not sure. MELE did tell Mayda that [facility] will be staffing the skilled nursing. Mayda Wiggins RETAIL CONSULTANT, SPA THERAPIST Addendum entered by Mayda Wiggins 03/31/22 17:33: Shayy states that she would like to receive discharge paperwork and that can be faxed to [phone]. Original Note: Social Work Note MELE received call from Shayy Galeana, [facility] DD. Shayy states that she has found a new agency and skilled nursing for pt to go to. Shayy states that the new agency will be [facility] and Computer Programmer is Clarice Lacy. Shayy states that they are able to provide staffing for pt for the weekend but states staff cannot come get pt until 8:00pm tonight. Shayy states that staff from [facility] will be at [facility] tonight at 8:00pm to transport to new Care Home. Shayy states that [facility] DD senior integration developerhot worker number is [phone] if any questions arise. Shayy states that Clar[facility] has worked with pt before and supported pt before. Shayy states that she will call pt's Legal Guardian and update them and tell them to sign any consents needed for pt. MELE updated MD Singh. MEEL updated supervisor tile and mottle. Mayda Wiggins RETAIL CONSULTANT, SPA THERAPIST
--- NOTE | 2022-03-31 19:08 | CM.ED ---
Social Work Note SW faxed ED discharge packet to Shayy Galeana. Mayda Wiggins DRYING ROOM SUPERVISOR, STUNTMAN
== END 2022-03-31 20:25 | disposition home or self-care (01) ==
PROVIDERS: Emergency Provider Emergency Medicine; PCP Family Medicine Geriatric Medicine; Visit Provider Emergency Medicine
DX: R45.6 Violent behavior (principal); G40.909 Epilepsy, unspecified, not intractable, without status epilepticus; F84.0 Autistic disorder; Z79.899 Other long term (current) drug therapy
CPT/HCPCS: 80053; 80307; 81001; 82077; 85025; 87811; 99285; J7030

== ENCOUNTER 2023-03-23 12:37 | Emergency (ER) | payer MEDICAID, SELFPAY ==
[2023-03-23 12:43] VITALS: BP 94/74; PULSE 70; RESP 18; TEMP 35.5; O2SAT 97
[2023-03-23 12:58] VITALS: BMI 37.0
--- NOTE | 2023-03-23 13:01 | EDS_ITS ---
HPI HPI - Psych History of Present Illness Chief Complaint: Mental Health Detail of Chief Complaint: Aggressive at the skilled nursing. Informant: patient and other (senior living staff.) Onset/Context/Timing Onset: Days Context: Gradual Onset Timing: Intermittent Current Severity: Mild Maximum Severity: Mild Associated Symptoms Associated Symptoms - Psych: Positive for Angry Narrative Narrative: 32-year-old male with history of seizure disorder. He has been a patient in a local skilled nursing for a year and in a skilled nursing system for around 16 years. Staff brings him in today because he has been getting aggressive at the skilled nursing with staff. Patient is unable to give any history. He is on Haldol 3 times a day. The skilled nursing staff wants me to get a hold of the patient's psychiatrist and Dr. Khalil at the [facility]. Prior similar symptoms: Yes Recent Illness/[facility]ospital[facility]: [facility] Medical History Autism Non-smoker Seizures Home Medications aripiprazole 10 mg tablet 15 mg PO BID 04/13/19 [History Last Taken 04/25/19] carbamazepine 200 mg tablet 300 mg PO DAILY 04/13/19 [History Last Taken 04/25/19] levetiracetam 1,000 mg tablet 2,000 mg PO BID 04/13/19 [History Last Taken 04/25/19] loratadine 10 mg tablet 10 mg PO DAILY 04/25/19 [History Last Taken 04/25/19] cannabidiol 100 mg/mL oral solution (Epidiolex) 453.5 mg PO BID 07/15/21 [History Last Taken Unknown] carbamazepine 300 mg capsule,extended release [id number] 600 mg PO QHS 07/15/21 [History Last Taken Unknown] fluticasone propionate 50 mcg/actuation nasal spray,suspension 2 spray intranasal DAILY 07/15/21 [History Last Taken Unknown] perampanel 10 mg tablet (Fycompa) 10 mg PO QHS 07/15/21 [History Last Taken Unknown] rufinamide 400 mg tablet (Banzel) 800 mg PO BID 07/15/21 [History Last Taken Unknown] clobazam 10 mg tablet 10 mg PO DAILY 03/30/22 [History Last Taken Unknown] clobazam 10 mg tablet 20 mg PO QHS 03/30/22 [History Last Taken Unknown] linaclotide 72 mcg capsule (Linzess) 72 mcg PO DAILY 03/30/22 [History Last Taken Unknown] midazolam 5 mg/spray (0.1 mL) nasal spray (Nayzilam) 1 spray intranasal PRN PRN Seizures 03/30/22 [History Last Taken Unknown] vitamin B complex 1 tab PO DAILY 03/30/22 [History Last Taken Unknown] benztropine 1 mg tablet 1 mg PO DAILY 03/23/23 [History Last Taken Unknown] haloperidol 0.5 mg tablet 0.5 mg PO DAILY 03/23/23 [History Last Taken Unknown] haloperidol 5 mg tablet 5 mg PO BID 03/23/23 [History Last Taken Unknown] propranolol 20 mg tablet 20 mg PO BID 03/23/23 [History Last Taken Unknown] Allergy/AdvReac Type Severity Reaction Status Date / Time amphetamine aspartate Allergy Unknown Verified 03/23/23 12:42 [From Adderall] amphetamine sulfate Allergy Unknown Verified 03/23/23 12:42 [From Adderall] buspirone HCl [From BuSpar] Allergy Unknown Verified 03/23/23 12:42 dextroamphetamine saccharate Allergy Unknown Verified 03/23/23 12:42 [From Adderall] dextroamphetamine sulfate Allergy Unknown Verified 03/23/23 12:42 [From Adderall] phenytoin AdvReac Intermediate agitation Verified 03/23/23 12:42 divalproex sodium AdvReac Other Verified 03/23/23 12:42 [From Depakote] Surgical History No history of previous surgery Social History household members: family Smoking Status: Never smoker substance use type: marijuana ROS ROS ED ROS Narrative Per staff no recent illness. Patient unable to give me any history. Review of Systems ROS Unobtainable: Denies due to encephalopathy Constitutional Constitutional ED: Denies chills or fever(s) ENT ENT ED: Denies ear pain Cardiovascular Cardiovascular: Denies chest pain Respiratory/Chest Respiratory/Chest: Denies cough Gastrointestinal Gastrointestinal: Denies abdominal pain Genitourinary Genitourinary ED: Denies dysuria Musculoskeletal Musculoskeletal: Denies arthralgias Integumentary Denies abscess Neurologic Neurologic: Denies headache(s) Psychiatric Psychiatric: Denies anxiety Endocrine Endocrinology: Denies polydipsia Hematologic/Lymphatic Hematologic/Lymphatic: Denies easy bleeding or easy bruising Allergic/Immunologic Allergic/Immunologic ED: Denies mouth swelling or tongue swelling EXAM Physical Exam Narrative Exam Narrative: Well-appearing 32-year-old male. Sitting upright in bed. He is calm and friendly. There is 2 workers from the skilled nursing at bedside. Patient is in no distress. His vital signs are stable. His initial blood pressure is 94/74 but he is tolerating well. To be rechecked. H EENT exam unremarkable. Neck nontender. Lungs are clear equal and symmetrical. Heart regular rhythm rate about 70 no murmur. Chest wall nontender. Abdomen soft nontender. Moving all 4 extremities. Nontender. He is awake and alert. He follows commands. There is is a limited informant. Const Vital Signs: 03/23/23 12:43 Temperature 96 F L Temperature Source Temporal Pulse Rate 70 Respiratory Rate 18 Blood Pressure 94/74 Blood Pressure Mean 80 Pulse Ox 97 Oxygen Delivery Method Room Air Positive well nourished and well developed; Negative for cachectic, contractures or unkempt General Appearance ED: well developed and NAD; Negative for unkempt, cachectic, contractures or pallor Nutritional Appearance: Negative for cachectic HEENT Reports moist mucous membranes normocephalic and atraumatic; Negative for trauma or tenderness Eyes PERRL and EOMs intact bilaterally General Eye ED: Negative for pale conjunctiva or scleral icterus Neck no lymphadenopathy, supple and no JVD General: Negative for tenderness Resp normal respiratory effort and clear to auscultation bilaterally Effort and Inspection: Negative for retractions Auscultation: Negative for rales, rhonchi or wheezes Cardio S1 normal heart sound, S2 normal heart sound and no murmurs Palpation: Negative for other Rate: regular rate Rhythm: regular rhythm GI non-tender, non-distended and no masses Inspection: Negative for abdominal distention Auscultation: normoactive bowel sounds Palpation: soft; Negative for tender or guarding Back/Spine no CVA tenderness Cervical Spine: Negative for cervical spine tenderness Thoracic Spine / Upper Back: Negative for thoracic spinal tenderness Lumbar Spine / Lower Back: Negative for lumbar spinal tenderness Extremity normal to inspection General Extremety ED: Negative for edema or tenderness General Extremity: Negative for edema Neuro Sensorium / Orientation: alert and oriented to person Motor Exam: strength 5/5 throughout Psych mental status grossly normal, cooperative, affect normal and speech normal Appearance: grossly normal; Negative for unkempt Attitude: calm, engaged, No paranoid, No withdrawn and No bizarre Activity / Motor Behavior: appropriate eye contact Speech: normal speech Mood & Affect: euthymic mood Thought Process: normal thought process Thought Content: normal thought content Attention / Concentration: attention grossly intact Skin General Skin Exam: Negative for jaundice or pallor Lesions: no lesions Rashes: no rashes Trauma: Negative for abrasion Wounds: Negative for amputation MDM MDM MDM Narrative Medical decision making narrative: 32-year-old male history of severe autism. Lives in a skilled nursing. Over the last several weeks has been getting aggressive with skilled nursing staff. Currently today he is calm. His exam is benign. He is stable and afebrile vital signs. I spoke to his psychiatrist at the [facility]. She spoke to his neurologist and they would like to accept him in transfer to consider adjusting his seizure medications and psychiatric meds and then need to do it on a unit where they can do EEG monitoring. They are trying to make arrangements through the transfer center to get the patient a available bed. Discharge Plan Triage Chief Complaint: Mental Health ED Provider: Shamar Carter Dx/Rx/DC Orders Clinical Impression: History of autism, Aggressive behavior, Hx of seizure disorder Prescriptions: No Action carbamazepine 200 MG tablet 300 mg PO DAILY aripiprazole 10 MG tablet 15 mg PO BID levetiracetam 1,000 MG tablet 2,000 mg PO BID loratadine 10 MG tablet 10 mg PO DAILY fluticasone propionate 50 mcg/actuation [place],Suspension 2 spray INTRANASAL DAILY carbamazepine 300 mg Capsule, Er Multiphase 12 Hr 600 mg PO QHS rufinamide [Banzel] 400 mg Tablet 800 mg PO BID Fycompa 10 mg Tablet 10 mg PO QHS Epidiolex 100 mg/mL Solution 453.5 mg PO BID vitamin B complex Tablet 1 tab PO DAILY clobazam 10 mg tablet 10 mg PO DAILY Patient Comments: TAKE 1 TABLET IN [id number] AND 2 TABLETS INYTHE EVENING clobazam 10 mg tablet 20 mg PO QHS Patient Comments: TAKE 1 TABLET IN [id number] AND 2 TABLETS INYTHE EVENING Linzess 72 mcg capsule 72 mcg PO DAILY Patient Comments: TAKE (1) CAPSULE BY MOUTHCDAILY. Nayzilam 5 mg/spray (0.1 mL) spray,non-aerosol 1 spray INTRANASAL PRN PRN (Reason: Seizures) Patient Comments: USE ONE SPRAY IN ONEINOSTRIL NEEDED FOR SEIZURES, MAY REPEAT DOSE IN ALTERNATE NOSTRIL AFTER 10 MINS BASED ON RESPONSE AN TOLERABILITY benztropine 1 mg tablet 1 mg PO DAILY propranolol 20 mg tablet 20 mg PO BID haloperidol 5 mg tablet 5 mg PO BID haloperidol 0.5 mg tablet 0.5 mg PO DAILY Primary Care Provider: Hermes Isaac Chi Referrals: Hermes Isaac Chi, MD [Primary Care Provider] - Disposition Disposition: Acute Care Hospital
[2023-03-23 14:44] VITALS: BP 111/82
[2023-03-23 14:46] VITALS: BP 111/73; PULSE 71; RESP 18; O2SAT 95
--- NOTE | 2023-03-23 15:42 | CM.ED ---
Social Work SW reviewed case with RODRIGO Matias evaluation not needed as patient is transferring to [facility]. SW available if additional needs arise. Raina Stone OUTBOUND SALES REPRESENTATIVE, ERIS
--- NOTE | 2023-03-23 15:51 | ED.RN ---
Attempted to make contact with guardian global compensation director, Bebeto Martinez, left voicemail.
--- NOTE | 2023-03-23 15:54 | ED.RN ---
Per Dr. Carter, pt. ok to take home 4 pm meds. Administered by caregiver at bedside.
[2023-03-23 19:38] VITALS: BP 124/86; PULSE 63; RESP 17; O2SAT 98
[2023-03-24 00:17] VITALS: BP 117/74; PULSE 74; RESP 18; O2SAT 97
== END 2023-03-24 00:18 | disposition short-term general hospital (02) ==
PROVIDERS: Emergency Provider Emergency Medicine; PCP Family Medicine Geriatric Medicine; Visit Provider Emergency Medicine
DX: F84.0 Autistic disorder (principal); G40.909 Epilepsy, unspecified, not intractable, without status epilepticus; Z79.899 Other long term (current) drug therapy
CPT/HCPCS: 99283

== ENCOUNTER 2023-04-06 09:10 | Emergency (ER) | payer MEDICAID, SELFPAY ==
[2023-04-06 09:11] VITALS: BP 112/79; PULSE 88; RESP 20; TEMP 36; O2SAT 100
--- NOTE | 2023-04-06 09:30 | EX.ED.DYSGE1 ---
HPI History of Present Illness Chief Complaint: Seizure Informant: other (Caregivers) Narrative Narrative: Presenting here with caregiver for concerns for seizure episode this morning. He had a few hours of staring and changes in breathing episodes. 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 Different types of seizures would occur. Reported was in the hospital 2 weeks ago was transferred up to [facility] for a week. Continuous EEG did note 2 seizures per report. He had Keppra stopped and added phenobarbital. He is still on Tegretol. He is on banzel, and as needed intranasal Versed. Also had behavior issues with mood disorder. Reported Thorazine was added 3 times a day. He is followed by specialist appointments being made for follow-up. They reported decreased appetite since he has been back. Reported since being home a week ago initially was more sedated from the new medications however is adjusting. There is been no recent vomiting or diarrhea. No head injuries. No fevers. Prior similar symptoms: Yes [facility] Medical History Autism Non-smoker Seizures Home Medications carbamazepine 200 mg tablet 300 mg PO BID 04/13/19 [History Last Taken 04/25/19] loratadine 10 mg tablet 10 mg PO DAILY 04/25/19 [History Last Taken 04/25/19] cannabidiol 100 mg/mL oral solution (Epidiolex) 453.5 mg PO BID 07/15/21 [History Last Taken Unknown] carbamazepine 300 mg capsule,extended release [id number] 600 mg PO QHS 07/15/21 [History Last Taken Unknown] fluticasone propionate 50 mcg/actuation nasal spray,suspension 2 spray intranasal DAILY 07/15/21 [History Last Taken Unknown] rufinamide 400 mg tablet (Banzel) 1,200 mg PO BID 07/15/21 [History Last Taken Unknown] clobazam 10 mg tablet 10 mg PO DAILY 03/30/22 [History Last Taken Unknown] clobazam 10 mg tablet 20 mg PO BID 03/30/22 [History Last Taken Unknown] linaclotide 72 mcg capsule (Linzess) 72 mcg PO DAILY 03/30/22 [History Last Taken Unknown] midazolam 5 mg/spray (0.1 mL) nasal spray (Nayzilam) 1 spray intranasal PRN PRN Seizures 03/30/22 [History Last Taken Unknown] vitamin B complex 1 tab PO DAILY 03/30/22 [History Last Taken Unknown] benztropine 1 mg tablet 1 mg PO BID 03/23/23 [History Last Taken Unknown] propranolol 20 mg tablet 20 mg PO TID 03/23/23 [History Last Taken Unknown] aripiprazole 15 mg tablet 15 mg PO BID 04/06/23 [History Last Taken Unknown] chlorpromazine 50 mg tablet 50 mg PO TID 04/06/23 [History Last Taken Unknown] melatonin 3 mg capsule 6 mg PO QHS 04/06/23 [History Last Taken Unknown] phenobarbital 64.8 mg tablet 64.8 mg PO BID 04/06/23 [History Last Taken Unknown] Allergy/AdvReac Type Severity Reaction Status Date / Time amphetamine aspartate Allergy Unknown Verified 03/23/23 12:42 [From Adderall] amphetamine sulfate Allergy Unknown Verified 03/23/23 12:42 [From Adderall] buspirone HCl [From BuSpar] Allergy Unknown Verified 03/23/23 12:42 dextroamphetamine saccharate Allergy Unknown Verified 03/23/23 12:42 [From Adderall] dextroamphetamine sulfate Allergy Unknown Verified 03/23/23 12:42 [From Adderall] phenytoin AdvReac Intermediate agitation Verified 03/23/23 12:42 divalproex sodium AdvReac Other Verified 03/23/23 12:42 [From Depakote] Surgical History No history of previous surgery Social History household members: family Smoking Status: Never smoker substance use type: marijuana ROS ROS ED Constitutional Constitutional ED: Denies chills, fever(s) or sweats Eyes Eyes: Denies change in vision ENT ENT ED: Denies dysphagia or sore throat Cardiovascular Cardiovascular: Denies chest pain, leg edema, palpitations or racing heartbeat Respiratory/Chest Respiratory/Chest: Denies cough, dyspnea or dyspnea on exertion Gastrointestinal Gastrointestinal: Denies abdominal pain, diarrhea, nausea or vomiting Genitourinary Genitourinary ED: Denies dysuria, hematuria or urinary frequency Musculoskeletal Musculoskeletal: Denies back pain, extremity pain or neck pain Integumentary Denies rash or wounds Neurologic Neurologic: Reports other Details: Seizure ; Denies headache(s), paresthesias or weakness EXAM Physical Exam Const Vital Signs: 04/06/23 09:11 04/06/23 12:37 Temperature 96.8 F L Temperature Source Temporal Pulse Rate 88 79 Respiratory Rate 20 H 16 Blood Pressure 112/79 117/71 Blood Pressure Mean 90 Pulse Ox 100 93 Oxygen Delivery Method Room Air Positive well nourished and well developed Constitutional Narrative: Nonverbal currently, per caregiver is not his baseline. General Appearance ED: well developed and NAD HEENT Reports moist mucous membranes normocephalic and atraumatic Eyes PERRL, EOMs intact bilaterally and conjunctivae normal General Eye ED: Yes normal appearance of both eyes Neck no lymphadenopathy and supple General: Negative for tenderness Chest Wall Chest: Negative for tenderness Resp normal respiratory effort and normal air movement Effort and Inspection: symmetric chest movement; Negative for respiratory distress Cardio regular rate, regular rhythm and no murmurs Peripheral Pulses: pulses 2+ throughout GI normal to inspection, nondistended, normoactive bowel sounds and non-tender Palpation: Negative for guarding or rebound tenderness present Back/Spine no CVA tenderness and no thoracic nor lumbar tenderness Extremity normal to inspection General Extremety ED: Negative for edema or tenderness General Extremity: Negative for edema Neuro no sensory deficits noted Sensorium / Orientation: awake Skin no rashes or lesions noted and no wounds MDM MDM MDM Narrative Medical decision making narrative: Interventions / MDM: Differential diagnosis: Breakthrough seizure, infections Diagnosis considered but do not suspect: N/A My EKG interpretation: N/A Imaging independently reviewed and interpreted by myself: N/A External documents reviewed: N/A Test considered but not ordered:N/A ED course: Seizure precautions Labs urine drug. Labs are able to urinate 25 leukocytes. No findings urine culture sent. Carbamazepine and phenobarbital levels returned therapeutic. Patient chad stable with no recurrent symptoms. Likely breakthrough seizure with his history. He improved on reevaluation. Discharged back with staff member for continued management with strict return precautions. Discussed they will be contacted if cultures are positive for treatment of urine infection. All questions were answered. Re-evaluation: stable Disposition discussed with patient/family/significant other: Caregivers Case discussed with consulting clinician: N/A This note was generated with [employer] software. It may contain incorrect words, spelling, and punctuation that were not noted in checking the note before signing. Lab Data Attestation: I reviewed the patient's lab results. Labs: Laboratory Results - last 24 hr 04/06/23 04/06/23 10:30 11:01 WBC 10.5 RBC 5.01 Hgb 14.9 Hct 44.1 MCV 88.0 MCH 29.7 MCHC 33.8 RDW Std Deviation 37.4 RDW Coeff of Radha 11.6 Plt Count 280 MPV 9.8 Immature Gran % (Auto) 0.300 Neut % (Auto) 73.5 H Lymph % (Auto) 15.1 L Jackson % (Auto) 7.2 Eos % (Auto) 3.3 Baso % (Auto) 0.6 Absolute Neuts (auto) 7.7 Absolute Lymphs (auto) 1.58 Nucleated RBC % 0 Sodium 136 Potassium 4.3 Chloride 103 Carbon Dioxide 26.0 Anion Gap 7 BUN 7 Creatinine 0.71 Est GFR (MDRD) Af Amer 166 Est GFR (MDRD) Non-Af 137 BUN/Creatinine Ratio 9.8 L Glucose 87 Calcium 8.8 Total Bilirubin 0.50 AST 29 ALT 24 Alkaline Phosphatase 83 Total Protein 7.2 Albumin 3.8 Globulin 3.4 Albumin/Globulin Ratio 1.1 Urine Color Yellow Urine Clarity Clear Urine pH 7.0 Ur Specific [place] 1.010 Urine Protein 15 H Urine Glucose (UA) Normal Urine Ketones Negative Urine Occult Blood Negative Urine Nitrite Negative Urine Bilirubin 1 H Urine Urobilinogen 1 H Ur Leukocyte Esterase 25 H Urine RBC 0 SEEN Urine WBC 0-5 SEEN Ur Squamous Epith Cells 0 SEEN Urine Bacteria 0 SEEN Urine Mucus 2+ Carbamazepine 9.2 Phenobarbital 17.0 Discharge Plan Triage Chief Complaint: Seizure ED Provider: Hunter Warner Dx/Rx/DC Orders Clinical Impression: Breakthrough seizure, Gaudencio-Gastaut syndrome, Autism Instructions: ED Seizure, Recurrent (Adult) Prescriptions: No Action carbamazepine 200 MG tablet 300 mg PO BID loratadine 10 MG tablet 10 mg PO DAILY fluticasone propionate 50 mcg/actuation [place],Suspension 2 spray INTRANASAL DAILY carbamazepine 300 mg Capsule, Er Multiphase 12 Hr 600 mg PO QHS rufinamide [Banzel] 400 mg Tablet 1,200 mg PO BID Epidiolex 100 mg/mL Solution 453.5 mg PO BID vitamin B complex Tablet 1 tab PO DAILY clobazam 10 mg tablet 10 mg PO DAILY Patient Comments: TAKE 1 TABLET IN [id number] AND 2 TABLETS INYTHE EVENING clobazam 10 mg tablet 20 mg PO BID Patient Comments: TAKE 1 TABLET IN [id number] AND 2 TABLETS INYTHE EVENING Linzess 72 mcg capsule 72 mcg PO DAILY Patient Comments: TAKE (1) CAPSULE BY MOUTHCDAILY. Nayzilam 5 mg/spray (0.1 mL) spray,non-aerosol 1 spray INTRANASAL PRN PRN (Reason: Seizures) Patient Comments: USE ONE SPRAY IN ONEINOSTRIL NEEDED FOR SEIZURES, MAY REPEAT DOSE IN ALTERNATE NOSTRIL AFTER 10 MINS BASED ON RESPONSE AN TOLERABILITY benztropine 1 mg tablet 1 mg PO BID propranolol 20 mg tablet 20 mg PO TID melatonin 3 mg capsule 6 mg PO QHS aripiprazole 15 mg tablet 15 mg PO BID phenobarbital 64.8 mg tablet 64.8 mg PO BID chlorpromazine 50 mg tablet 50 mg PO TID Primary Care Provider: Hermes Isaac Chi Referrals: Hermes Isaac Chi, MD [Primary Care Provider] - Activity Restrictions/Additional Instructions: Your lab work stable. Your carbamazepine level 9.2, phenobarbital level 17. Both therapeutic ranges. Urine at 25 leukocytes, urine culture sent. You will be contacted if culture positive for required treatment. White count 10.5 normal electrolytes. Follow-up with your neurologist and psychologist as an outpatient as planned from your discharge. Return if worsening or recurrent symptoms. Disposition Disposition: Home, Self Care Discharge Date/Time: 04/06/23 12:39
[2023-04-06 10:55] LABS: Absolute Lymphocyte Count 1.58 X10^3/uL (0.83-4.51); Absolute Neutrophil Count 7.7 X10^3/uL (2.0-7.7); Basophil# 0.06 X10^3/uL; Basophil% 0.6 % (0-1); Eosinophil# 0.34 X10^3/uL; Eosinophils% 3.3 % (0-5); Hematocrit 44.1 % (40-54); Hemoglobin 14.9 g/dL (13.0-16.5); Lymphocyte # 1.58 X10^3/ul (0.83-4.51); Lymphocyte % 15.1 % (19-41); Mean Corp Hgb Conc 33.8 g/dL (32-36); Mean Corpuscular Hgb 29.7 pg (27.0-32.0); Mean Platelet Vol. 9.8 fl (6.2-12.0); Monocyte# 0.75 X10^3/uL; Monocyte% 7.2 % (0-10); NRBC Flagged by Analyzer 0 % (0-5); Neutrophil % 73.5 % (47-70); Platelet Count 280 K/mm3 (150-450); RBC Distribution Width CV 11.6 % (11.6-14.6); RBC Distribution Width SD 37.4 fl (35.1-43.9); Red Blood Count 5.01 M/mm3 (4.6-6.2); White Blood Count 10.5 K/mm3 (4.4-11.0)
[2023-04-06 11:05] LABS: Bacteria 0 SEEN /hpf (None Seen); Red Blood Cells-Urine 0 SEEN /hpf (0-5); Squamous Epithelial Cells - UA 0 SEEN /hpf (0-5)
[2023-04-06 11:13] LABS: Color, Urine Yellow (Yellow); Glucose, Dipstick Normal (Normal); Ketone-Dipstick Negative (Negative); Leukocyte Esterase-Dipstick 25 /ul (Negative); Nitrite-Dipstick Negative (Negative); Occult Blood-Urine Negative /ul (Negative); Protein-Dipstick 15 mg/dl (Negative); Urine Clarity Clear (Clear); Urine Urobilinogen 1 mg/dl (Normal)
[2023-04-06 11:15] LABS: Urine Bilirubin Dipstick 1 mg/dL (Negative)
[2023-04-06 11:16] LABS: ALB/GLOB Ratio 1.1 RATIO (0.9-2.4); AST(SGOT) 29 U/L (15-37); Alanine Aminotransfer ALT/SGPT 24 U/L (16-61); Albumin, Serum 3.8 g/dL (3.2-5.0); Alkaline Phosphatase 83 U/L (45-117); Anion Gap 7 (5-15); BUN 7 mg/dL (7-18); BUN/Creat Ratio 9.8 RATIO (10-20); Calcium,Total 8.8 mg/dL (8.5-10.1); Chloride 103 mmol/L (98-107); Creatinine, Serum 0.71 mg/dL (0.70-1.30); EST Glomerular Filtration Rate 137 mL/min (>60); Est Glom Filt Rate - Afr Amer 166 mL/min (>60); Globulin 3.4 g/dL (2.2-4.2); Glucose 87 mg/dL (74-106); Potassium 4.3 mmol/L (3.5-5.1); Protein, Total 7.2 g/dL (6.4-8.2); Sodium Level 136 mmol/L (136-145)
[2023-04-06 11:21] LABS: Carbamazepine (Tegretol) 9.2 ug/mL (4.0-12.0)
[2023-04-06 11:28] LABS: Mucous, Urine 2+ /hpf (<or=2+); White Blood Cells 0-5 SEEN /hpf (0-5)
--- NOTE | 2023-04-06 12:05 | NURSING ---
per dr. iqbal, caregivers from the long term have permission to bring in patient's medications and administer them
[2023-04-06 12:37] VITALS: BP 117/71; PULSE 79; RESP 16; O2SAT 93
== END 2023-04-06 12:39 | disposition home or self-care (01) ==
PROVIDERS: Emergency Provider Emergency Medicine; PCP Family Medicine Geriatric Medicine; Visit Provider Emergency Medicine
DX: G40.812 Lennox-Gastaut syndrome, not intractable, without status epilepticus (principal); F39 Unspecified mood [affective] disorder; F84.0 Autistic disorder; Z79.899 Other long term (current) drug therapy
CPT/HCPCS: 36415; 80053; 80156; 80184; 81001; 85025; 87086; 96360; 96361; 99283

== ENCOUNTER → 2023-04-16 | Outpatient (CLI) | payer MEDICAID, SELFPAY ==
--- NOTE | 2023-04-16 12:30 | RAD_ITS ---
STUDY: X-RAY - ABDOMEN/PELVIS REASON FOR EXAM: Male, 32 years old. DIARRHEA TECHNIQUE: AP supine and upright views of the abdomen and pelvis. COMPARISON: Comparison is made with prior study of September 27, 2017. FINDINGS: Normal visualized lung bases. Moderate amount of fecal material is seen in the colon. There is no demonstrated free abdominal air. The visualized liver, spleen and kidneys are grossly normal in size and morphology. Normal soft tissue structures. Normal visualized osseous structures. RAD/Abd Inc Decub and/or Erect IMPRESSION: Moderate amount of fecal material is seen in the colon. Electronically Signed: Ag Wen MD at 13:19 EDT ,
== END | disposition home or self-care (01) ==
LOC: RAD 12:26
PROVIDERS: PCP Family Medicine Geriatric Medicine; Referring Provider Family Medicine Geriatric Medicine; Visit Provider Family Medicine Geriatric Medicine
DX: R19.7 Diarrhea, unspecified (principal)
CPT/HCPCS: 74019